=== PATIENT | male | born 1980 | race American Indian/Alaskan Native ===

== ENCOUNTER 2017-12-23 00:22 | Emergency (ER) | payer OTHER ==
[2017-12-23 01:49] VITALS: BP 145/80
[2017-12-23] MEDS ORDERED: MOTRIN ONE (02:20)
[2017-12-23] MEDS ORDERED: MOTRIN PO ONE (02:24)
--- NOTE | 2017-12-23 03:16 | XRay Report ---
FINAL REPORT PROCEDURE: XR RIBS UNILAT 2V RT TECHNIQUE: Unilateral rib radiographs, 2 views of the RIGHT ribs. HISTORY: Right rib pain COMPARISON: No prior studies are available for comparison. FINDINGS: Lungs: Normal. Pleural space: Normal. Pneumothorax: None. Bony thorax/ribs: No significant abnormality. IMPRESSION: Normal Examination.
--- NOTE | 2017-12-23 04:11 | Emergency Department Report ---
<NIGEL ROSALES - Last Filed: 12/23/17 04:07> ED Fall HPI - General Chief Complaint: Fall Stated Complaint: RIGHT RIBS PAIN Time Seen by Provider: 12/23/17 04:06 Source: patient Mode of arrival: Ambulatory - History of Present Illness Initial Comments: 7-year-old -[place] male comes to the emergency room stating that he was playing with his cousins and fell onto his right ribs. Patient reports this pain with deep breath. He has taken nothing for pain prior to arrival. His medical history currently takes no medications on a daily basis. He was given ibuprofen in triage she reports has helped some. Patient does not have a primary care provider at this time. MD Complaint: fall -: During the night When Fall Occurred: 4-6 hours [employer] Fall Witnessed: yes, by family Place Fall Occurred: home Loss of Consciousness: none Prolonged Down Time?: no Symptoms Prior to Fall: none Location: chest (right side of chest) Severity scale (0 -10): 10 Quality: sharp Associated Symptoms: denies - Related Data Previous Rx's Medication Instructions Recorded Last Taken Type Ibuprofen [Motrin 600 MG tab] 600 mg PO Q8H PRN #15 tablet 12/23/17 Unknown Rx Allergies Allergy/AdvReac Type Severity Reaction Status Date / Time No Known Allergies Allergy Unverified 12/23/17 02:23 ED Review of Systems ROS: Stated complaint: RIGHT RIBS PAIN Other details as noted in HPI Comment: All other systems reviewed and negative Constitutional: chills, fever ED Past Medical Hx - Past Medical History Previous Medical History?: No - Surgical History Past Surgical History?: No - Social History Smoking Status: Never Smoker Substance Use Type: None - Medications Home Medications: Home Medications Medication Instructions Recorded Confirmed Last Taken Type Ibuprofen [Motrin 600 MG tab] 600 mg PO Q8H PRN #15 tablet 12/23/17 Unknown Rx ED Physical Exam - General Limitations: No Limitations General appearance: alert, in no apparent distress - Head Head exam: Present: atraumatic, normocephalic - Eye Eye exam: Present: EOMI - ENT ENT exam: Present: mucous membranes moist - Respiratory Respiratory exam: Present: normal lung sounds bilaterally, chest wall tenderness (right side ribs tender.). Absent: respiratory distress - Cardiovascular Cardiovascular Exam: Present: regular rate, normal rhythm. Absent: systolic murmur, diastolic murmur, rubs, gallop - GI/Abdominal GI/Abdominal exam: Present: soft. Absent: distended, tenderness - Extremities Exam Extremities exam: Present: normal inspection, full ROM - Back Exam Back exam: Present: normal inspection - Neurological Exam Neurological exam: Present: alert, oriented X3 - Psychiatric Psychiatric exam: Present: normal affect, normal mood - Skin Skin exam: Present: warm, dry, intact, normal color. Absent: rash ED Course Vital Signs 12/23/17 00:52 Temperature 99.2 F Pulse Rate 78 Respiratory 18 Rate Blood Pressure 145/80 O2 Sat by Pulse 99 Oximetry ED Medical Decision Making - Radiology Data Radiology results: report reviewed FINAL REPORT PROCEDURE: XR RIBS UNILAT 2V RT TECHNIQUE: Unilateral rib radiographs, 2 views of the RIGHT ribs. HISTORY: Right rib pain COMPARISON: No prior studies are available for comparison. FINDINGS: Lungs: Normal. Pleural space: Normal. Pneumothorax: None. Bony thorax/ribs: No significant abnormality. IMPRESSION: Normal Examination. Transcribed By: CO Dictated By: MARGARETH SANTIAGO MD Electronically Authenticated By: MARGARETH SANTIAGO MD Signed Date/Time: 12/23/17314 DD/ 4 TD/TT: 12/23/17314 - Medical Decision Making Patient has been evaluated by this provider in fast track. Ibuprofen given in triage for pain management which patient reports has helped some. X-ray of left rib series were negative for any fractures. Patient be discharged on ibuprofen. Critical care attestation.: If time is entered above; I have spent that time in minutes in the direct care of this critically ill patient, excluding procedure time. ED Disposition Clinical Impression: Rib pain on right side, Contusion of rib on right side Disposition: DC-01 TO HOME OR SELFCARE Is pt being admited?: No Does the pt Need Aspirin: No Condition: Stable Instructions: Chest Pain (ED) Additional Instructions: Please take pain medication as needed. If her symptoms persist or gets worse please follow up with her primary care provider. Prescriptions: Ibuprofen [Motrin 600 MG tab] 600 mg PO Q8H PRN #15 tablet PRN Reason: Pain Referrals: [facility] [Provider Group] - 3-5 Days Forms: Work/School Release Form(ED) <FACUNDO ARREOLA - Last Filed: 12/26/17 20:51> ED Fall HPI - History of Present Illness Initial Comments: 37 yo
== END 2017-12-23 04:30 | disposition home or self-care (01) ==
LOC: ED 00:22
DX: S20.20XA Contusion of thorax, unspecified, initial encounter (principal); W19.XXXA Unspecified fall, initial encounter; Y93.89 Activity, other specified; Y92.89 Other specified places as the place of occurrence of the external cause; Y99.8 Other external cause status
CPT/HCPCS: 99283